=== PATIENT | male | born 1990 | race Caucasian/White ===

== ENCOUNTER 2017-12-30 03:05 | Emergency (ER) | payer MEDICAID, OTHER ==
[2017-12-30] MEDS ORDERED: LORazepam 2 MG/ML INJ ONE (03:17)
[2017-12-30] MEDS ORDERED: NS 1,000 ML IV ONE (03:17)
[2017-12-30] MEDS ORDERED: LORazepam 0.5 MG TAB PO ONE (03:17)
[2017-12-30] MEDS ORDERED: LORazepam 0.5 MG TAB ONE (03:18)
[2017-12-30 03:24] VITALS: BP 140/95
--- NOTE | 2017-12-30 03:32 | EDPHY ---
H & P Stated Complaint: chest pain Time Seen by Provider: 12/30/17 03:16 HPI/ROS: Chief Complaint: Palpitations, chest tightness HPI: 27-year-old male with a history of bipolar disorder has been working with his psychiatrist and being weaning off his medications recently. He stopped taking with him 2 weeks ago in addition to weaning off his other medications. Fast weeks he has been having episodes of palpitations. Tonight before going to bed patient decided to take a single lithium tablet. He then developed worsening palpitations and developed some mild tightness in his central chest. Is this is persisted for the last 4 hr. He did take 0.5 mg of Ativan without any relief. He has not have any shortness of breath. No leg pain or swelling. No family history of coronary artery disease. He does not smoke. No recent travel or periods of immobility. He is feeling mildly anxious. ROS: 10 systems were reviewed and were negative except those elements noted in the HPI. PMH: Bipolar disorder Social History: No smoking, no alcohol, no recreational drug use Family History: non-contributory Physical Exam: Gen: Awake, Alert, No Distress HEENT: Nose: no rhinorrhea Eyes: PERRLA, EOMI Mouth: Moist mucosa Neck: Supple, no JVD Chest: nontender, lungs clear to auscultation Heart: S1, S2 normal, no murmur Abd: Soft, non-tender, no guarding Back: no CVA tenderness, no midline tenderness Ext: no edema, non-tender Skin: no rash Neuro: CN II-XII intact, Sensation grossly intact, Strength 5/5 in bilateral upper and lower extremities - Medical/Surgical History Hx Asthma: No Hx Chronic Respiratory Disease: No Hx Diabetes: No Hx Cardiac Disease: No Hx Renal Disease: No Hx Cirrhosis: No Hx Alcoholism: No Hx HIV/AIDS: No Hx Splenectomy or Spleen Trauma: No Other PMH: PMH: bipolar. PSH: denies - Social History Smoking Status: Never smoked Constitutional: Initial Vital Signs Temperature (C) 36.7 C 12/30/17 03:07 Heart Rate 116 H 12/30/17 03:07 Respiratory Rate 22 H 12/30/17 03:07 Blood Pressure 147/107 H 12/30/17 03:07 O2 Sat (%) 97 12/30/17 03:07 O2 Delivery Mode Room Air Allergies/Adverse Reactions: No Known Allergies Allergy (Unverified 07/23/14 09:17) Home Medications: Medication Instructions Recorded NK [No Known Home Meds] 12/30/17 Medical Decision Making - Diagnostics EKG Interpretation: ECG time 3:16 a.m., sinus tachycardia with a rate of 111, borderline right axis deviation, no acute ST or T-wave changes. ED Course/Re-evaluation: Patient's symptoms are improved. ECG is negative. Troponin is negative. Electrolytes are normal. I do not think that this is cardiac in nature. With symptoms began after the patient took a lithium tablet. I think this is related to his weaning of his bipolar medications. I have counseled him to follow up with psychiatrist, return for any concerns. - Data Points Laboratory Results: Laboratory Results 12/30/17 03:15 12/30/17 12/30/17 12/30/17 03:15 03:15 03:12 WBC Pending RBC Pending Hgb Pending Hct Pending MCV Pending MCH Pending MCHC Pending RDW Pending Plt Count Pending MPV Pending Neut % (Auto) Pending Lymph % (Auto) Pending Jerome % (Auto) Pending Eos % (Auto) Pending Baso % (Auto) Pending Nucleat RBC Rel Count Pending Absolute Neuts (auto) Pending Absolute Lymphs (auto) Pending Absolute Monos (auto) Pending Absolute Eos (auto) Pending Absolute Basos (auto) Pending Absolute Nucleated RBC Pending Immature Gran % Pending Immature Gran # Pending Sodium 141 mEq/L mEq/L (135-145) Potassium 4.0 mEq/L mEq/L (3.3-5.0) Chloride 106 mEq/L mEq/L (97-110) Carbon Dioxide 26 mEq/l mEq/l (22-31) Anion Gap 9 mEq/L mEq/L (6-14) BUN 11 mg/dL mg/dL (7-23) Creatinine 0.7 mg/dL mg/dL (0.7-1.3) Estimated GFR > 60 Glucose 108 mg/dL H mg/dL (70-100) Calcium 9.9 mg/dL mg/dL (8.5-10.4) POC Troponin I 0.00 ng/mL ng/mL (0.00-0.08) Medications Given: Discontinued Medications Sodium Chloride (Ns) 1,000 mls @ 0 mls/hr IV ONCE ONE; Wide Open PRN Reason: Protocol Stop: 12/30/17 03:18 Last Admin: 12/30/17 03:20 Dose: 1,000 mls Lorazepam (Ativan) 0.5 mg PO EDNOW ONE Stop: 12/30/17 03:18 Last Admin: 12/30/17 03:21 Dose: 0.5 mg Point of Care Test Results: Chemistry 12/30/17 03:12 POC Troponin I 0.00 ng/mL ng/mL (0.00-0.08) Departure - Departure Disposition: Home, Routine, Self-Care Clinical Impression: Palpitations Condition: Good Instructions: Heart Palpitations (ED) Additional Instructions: Follow up with your psychiatrist in 2-3 days for further evaluation. Return to the emergency department for worsening chest pain, shortness of breath , fainting, or any other concerns. Referrals: Patient,NotPresent [Unknown] - As per Instructions
--- NOTE | 2017-12-30 05:21 | CPEKG ---
Test Reason : OPEN Blood Pressure : / mmHG Vent. Rate : 111 BPM Atrial Rate : 111 BPM P-R Int : 158 ms QRS Dur : 093 ms QT Int : 320 ms P-R-T Axes : 050 098 027 degrees QTc Int : 435 ms Sinus tachycardia Borderline right axis deviation Confirmed by Luis Moya [id number] on 12/30/2017 5:20:57 AM Referred By: Confirmed By:Luis Moya
== END 2017-12-30 04:35 | disposition home or self-care (01) ==
LOC: EDUNIT#
DX: R00.2 Palpitations (principal); R07.9 Chest pain, unspecified
CPT/HCPCS: 84484-PO; J2060